=== PATIENT | male | born 1985 | race Caucasian/White ===

== ENCOUNTER 2020-10-01 12:50 | Emergency (ER) | payer SELFPAY ==
[~2020-10-01] VITALS: Ht 182.9 cm; Wt 35.8 kg
[2020-10-01] MEDS ORDERED: TYLENOL # 31 EA PO (13:11)
[2020-10-01] MEDS ORDERED: IBUPROFEN IB200 MG PO (13:11)
== END 2020-10-01 14:17 | disposition home or self-care (01) ==
LOC: FSED 13:05
DX: M54.5 Low back pain (principal); F17.210 Nicotine dependence, cigarettes, uncomplicated
CPT/HCPCS: 74176; 80053; 81003; 85025; 99283